=== PATIENT | male | born 1985 | race Two or more races ===

== ENCOUNTER 2024-01-23 11:13 | Emergency (ER) | payer MEDICAID ==
[~2024-01-23] VITALS: Ht 175.3 cm; Wt 72.6 kg
[2024-01-23 11:18] VITALS: BP 164/109; TEMP 98.2
[2024-01-23] MEDS ORDERED: DIPH25CA83 PO (12:02)
[2024-01-23] MEDS ORDERED: GLY/480L3 TP (12:02)
[2024-01-23 12:09] VITALS: O2SAT 99
== END 2024-01-23 12:10 | disposition home or self-care (01) ==
LOC: ER 11:17
DX: L85.3 Xerosis cutis (principal)

== ENCOUNTER 2024-02-01 17:18 | Emergency (ER) | payer MEDICAID ==
[~2024-02-01] VITALS: Ht 167.6 cm; Wt 63.5 kg
[~2024-02-01 17:18] MED LIST: DIPH25CA83 PO; GLY/480L3 TP
[2024-02-01] MEDS: ACETAMINOPHEN ES 500 MG TABLET PO ONE (19:35)
[2024-02-01] MEDS ORDERED: ACETAMINOPHEN ES 500 MG TABLET ONE (19:35)
[2024-02-01 19:37] LABS: APPEARANCE,URINE CLEAR (CLEAR); BILIRUBIN,URINE NEGATIVE (NEGATIVE); BLOOD, URINE NEGATIVE Ery/uL (NEGATIVE); COLOR,URINE YELLOW (YELLOW); KETONES,URINE NEGATIVE (NEGATIVE); LEUKOCYTE ESTERASE ,URINE NEGATIVE (NEGATIVE); NITRITE, URINE NEGATIVE (NEGATIVE); PROTEIN,URINE NEGATIVE (NEGATIVE); UGLUCOSE NEGATIVE (NEGATIVE); UROBILINOGEN,URINE 0.2 EU/dL (0.2)
[2024-02-01 19:50] LABS: BASOPHILS # (AUTO) 0.1 K/uL (0.0-0.2); BASOPHILS % (AUTO) 1.8 % (0.0-2.0); EOSINOPHILS # (AUTO) 0.1 K/uL (0.0-0.7); EOSINOPHILS % (AUTO) 1.6 % (0.0-6.0); HEMATOCRIT 43 % (39-51); HEMOGLOBIN 14.4 g/dL (13.5-17.5); LYMPHOCYTES # (AUTO) 2.4 K/uL (0.8-4.8); LYMPHOCYTES % (AUTO) 28.6 % (20.0-44.0); MEAN CORPUSCULAR HEMOGLOBIN 30 PG (26.0-33.0); MEAN CORPUSCULAR HGB CONC 33 g/dl (31.0-36.0); MEAN CORPUSCULAR VOLUME 88 fL (80-96); MONOCYTES # (AUTO) 0.6 K/uL (0.1-1.30); MONOCYTES % (AUTO) 6.7 % (2.0-12.0); NEUTROPHILS # (AUTO) 5.1 K/uL (1.8-8.9); NEUTROPHILS % (AUTO) 61.3 % (43.0-81.0); PLATELET COUNT (AUTO) 275 K/uL (150-450); RED BLOOD CELL COUNT(AUTO) 4.89 MIL/uL (4.5-6.0); RED CELL DISTRIBUTION WIDTH 13.9 % (11.5-15.0); WHITE BLOOD COUNT (AUTO) 8.3 K/uL (4.3-11.0)
[2024-02-01 19:59] LABS: CALCIUM, SERUM 8.6 mg/dL (8.5-10.1); CREATININE 0.9 mg/dL (0.6-1.3); POTASSIUM 4.1 mmol/L (3.5-5.1)
[2024-02-01 20:05] LABS: BILIRUBIN,DIRECT 0.1 mg/dL (0.0-0.2); BILIRUBIN,TOTAL 0.3 mg/dL (0.2-1.0); TOTAL PROTEIN, SERUM 7.4 g/dL (6.4-8.2)
[2024-02-01 20:51] LABS: NEUTROPHILS % (MANUAL) 68 (42-76)
[2024-02-01 20:52] LABS: EOSINOPHILS % (MANUAL) 1 % (0-4); LYMPHOCYTES % (MANUAL) 24 % (16-48); MONOCYTES % (MANUAL) 7 % (0-11.0); PLATELET ESTIMATE ADEQUATE
[2024-02-01] MEDS ORDERED: ACET-2605 PO (20:58)
[2024-02-01] MEDS ORDERED: IBUP-1955 PO (20:58)
[2024-02-01 21:05] VITALS: BP 122/77; TEMP 98; O2SAT 99
== END 2024-02-01 21:05 | disposition home or self-care (01) ==
LOC: ER 17:22
DX: R10.9 Unspecified abdominal pain (principal); Z79.899 Other long term (current) drug therapy
CPT/HCPCS: 36415; 80048-TC; 80076-TC; 83690-TC; 85025-TC